=== PATIENT | male | born 1945 | race Hispanic/Latino ===

== ENCOUNTER → 2016-08-01 | Outpatient (CLI) | payer OTHER, BC | LOC: MMPC 09:00 | DX: B35.6 Tinea cruris (principal) | CPT/HCPCS: 99212; G0463 ==

== ENCOUNTER → 2016-09-06 | Outpatient (CLI) | payer OTHER, BC ==
--- NOTE | 2016-09-06 13:00 | DI ---
XR FOOT COMPLETE MIN 3VW,09/06/2016 12:06 PM: Clinical History: Left foot pain Previous Exam: None at this facility. Findings: 3 views of the left foot are obtained, and demonstrate anatomic alignment without fractures. Surround ing soft tissues are unremarkable. Impression: Normal left foot.
== END ==
LOC: MOB LAB 12:09
DX: M79.672 Pain in left foot (principal); M10.9 Gout, unspecified; M79.89 Other specified soft tissue disorders
CPT/HCPCS: 36415; 73630; 84550; 99212; G0463